=== PATIENT | male | born 1945 | race Caucasian/White ===

== ENCOUNTER 2018-04-18 10:32 | Emergency (ER) | payer MEDICARE, OTHER ==
[~2018-04-18] VITALS: Ht 177.8 cm; Wt 60.8 kg
[~2018-04-18 10:32] MED LIST: ASPIRIN81 M1 PO; AUGMENTIN 875 M1 TAB PO; B12,B-12,B 12500 MC1 PO; CIPRODEX 0.3%-7.5 ML OT
[2018-04-18] MEDS ORDERED: CEPHALEXIN500 M1 PO (12:16)
== END 2018-04-18 12:18 | disposition home or self-care (01) ==
LOC: ED 10:32
DX: S62.522A Displaced fracture of distal phalanx of left thumb, initial encounter for closed fracture (principal); F17.200 Nicotine dependence, unspecified, uncomplicated; Z79.82 Long term (current) use of aspirin; Z79.899 Other long term (current) drug therapy; Z89.021 Acquired absence of right finger(s); X58.XXXA Exposure to other specified factors, initial encounter; Y93.89 Activity, other specified; Y92.89 Other specified places as the place of occurrence of the external cause; Y99.8 Other external cause status

== ENCOUNTER → 2018-05-17 | Outpatient (CLI) | payer MEDICARE, OTHER ==
[~2018-05-17] MED LIST changes: +CEPHALEXIN500 M1 PO
== END | disposition home or self-care (01) ==
LOC: ORTHO 03:25
DX: S62.522D Displaced fracture of distal phalanx of left thumb, subsequent encounter for fracture with routine healing (principal); X58.XXXD Exposure to other specified factors, subsequent encounter